=== PATIENT | male | born 1985 | race Caucasian/White ===

== ENCOUNTER → 2021-04-17 | Outpatient (CLI) | payer BC ==
[~2021-04-17] MED LIST: BENICAR/HCTZ PO; CENTRUM1 TAB PO; COLACE 100100 MG/CAP PO; NORMODYNE200 MG PO; NORVASC10 MG PO; TEKTURNA PO
[2021-04-17 16:47] LABS: SYNOVIAL FL. MONONUCLEAR 92.8 % (0-75); SYNOVIAL FLUID RBC 328000 /mm3 (0-0); SYNOVIAL FLUID WBC 2277 /mm3 (200-600)
[2021-04-18 08:59] LABS: SYNOVIAL FLUID APPEARANCE BLOODY; SYNOVIAL FLUID COLOR RED
== END ==
LOC: ZCOL.LAB 16:04
PROVIDERS: Orthopaedic Surgery
DX: Z11.9 Encounter for screening for infectious and parasitic diseases, unspecified (principal); M25.561 Pain in right knee; Z96.651 Presence of right artificial knee joint